=== PATIENT | female | born 1990 | race Caucasian/White ===

== ENCOUNTER 2020-04-27 14:09 | Emergency (ER) | payer BC, OTHER ==
--- NOTE | 2020-04-27 14:28 | TELE ---
HPI Do you have fever,cough or shortness of breath?: No - General Reason For Visit: COVID 19 TEST History Source: Patient Exam Limitations: No Limitations - History of Present Illness 04/27/20 14:26 30-year-old female denies past medical history evaluated via telemedicine requesting Covid testing. patient states recent exposure to a known positive Covid person. Denies cough, fever, chills, headache, body aches or any other symptom. PE: Speaking full sentences, does not appear in respiratory distress Past History - Medical History Allergies/Adverse Reactions: Allergies Allergy/AdvReac Type Severity Reaction Status Date / Time blueberry [Blueberry] Allergy Swelling Verified 07/08/14 09:11 No Known Drug Allergies Allergy Verified 07/08/14 09:11 Home Medications: Ambulatory Orders Oxycodone HCl/Acetaminophen [Percocet 5-325 mg Tablet -] 1 - 2 tab PO Q4H #20 tablet 07/09/14 Anemia: No Asthma: Yes Cancer: No Cardiac Disorders: No CVA: No COPD: No CHF: No Dementia: No Diabetes: No GI Disorders: No Disorders: No HTN: No Hypercholesterolemia: Yes Liver Disease: No Seizures: No Thyroid Disease: No - Surgical History Abdominal Surgery: Yes (GASTRIC SLEEVE 2011) Appendectomy: No Cardiac Surgery: No Cholecystectomy: No Lung Surgery: No Neurologic Surgery: No Orthopedic Surgery: No - Psycho-Social/Smoking History Smoking History: Never smoked Have you smoked in the past 12 months: No - Medical Decision Making 04/27/20 14:27 Covid test ordered Discharge Diagnosis at time of Disposition: Exposure to COVID-19 virus - Referrals Follow-up Referral(s): Neville Goldstein MD [Primary Care Provider] - - Patient Instructions Discharge Instructions: [facility] - Coronavirus Instructions Additional Discharge Instructions: You will be contacted within 2 to 3 days with Covid results - Discharge Disposition: HOME Condition at time of Disposition: Stable
== END 2020-04-27 14:28 | disposition home or self-care (01) ==
LOC: JVIRT 14:09
DX: Z03.818 Encounter for observation for suspected exposure to other biological agents ruled out (principal)
CPT/HCPCS: C9803; Q3014-GT; U0003

== ENCOUNTER 2020-05-07 14:16 | Emergency (ER) | payer BC, OTHER | END 2020-05-07 15:08 | disposition home or self-care (01) | LOC: JVIRT 14:16 | DX: Z03.818 Encounter for observation for suspected exposure to other biological agents ruled out (principal) | CPT/HCPCS: C9803; Q3014-GT; U0003 ==

== ENCOUNTER 2022-07-11 14:52 | Emergency (ER) | payer BC, OTHER ==
[2022-07-11 15:18] VITALS: BP 111/64; PULSE 84; RESP 18; TEMP 97.6; BMI 81.1
[2022-07-11] MEDS ORDERED: LACTATED RINGERS SOLUTION 1000 ML INFUS.BAG IV ONE (16:12)
[2022-07-11 16:53] LABS: BASO % 0.5 % (0-2.0); EOS % 2.8 % (0-4.5); HEMOGLOBIN 11.9 GM/dL (10.7-15.3); LYMPH % 14.1 % (8-40); MCH 23.8 pg (25.7-33.7); MCHC 32.3 g/dl (32.0-36.0); MEAN CELL VOLUME 73.7 fl (80-96); MEAN PLT VOLUME 8.5 fl (7.5-11.1); MONO % 4.3 % (3.8-10.2); NEUT % 78.3 % (42.8-82.8); PLATELET COUNT 298 10^3/uL (134-434); RBC 5.02 M/mm3 (3.60-5.2); RDW 16.6 % (11.6-15.6); WHITE BLOOD COUNT 13.5 K/mm3 (4.0-10.0)
[2022-07-11 17:12] LABS: CALCIUM 8.3 mg/dL (8.5-10.1)
[2022-07-11 17:13] LABS: ALBUMIN 3.5 g/dl (3.4-5.0); BLOOD UREA NITROGEN 5.2 mg/dL (7-18)
[2022-07-11 17:15] LABS: CREATININE 0.8 mg/dL (0.55-1.3)
[2022-07-11 17:17] LABS: BILIRUBIN,TOTAL 0.3 mg/dL (0.2-1); TOT PROT 6.7 g/dl (6.4-8.2)
[2022-07-11 18:56] LABS: PH,URINE 5.5 (5.0-8.0); URINE APPEARANCE CLEAR; URINE BILIRUBIN NEGATIVE (NEGATIVE); URINE COLOR YELLOW; URINE GLUCOSE (UA) NEGATIVE (NEGATIVE); URINE KETONE NEGATIVE (NEGATIVE); URINE LEUK ESTERASE NEGATIVE (NEGATIVE); URINE NITRITE NEGATIVE (NEGATIVE); URINE PROTEIN NEGATIVE (NEGATIVE); URINE UROBILINOGEN 0.2 mg/dL (0.2-1.0)
== END 2022-07-11 19:05 | disposition home or self-care (01) ==
LOC: JER 14:52
DX: R55 Syncope and collapse (principal)
CPT/HCPCS: 0241U-QW; 36415; 70450-TC; 71046-TC-FY; 80053; 81003; 84484; 84703; 85025; 93005; 93010; 99285-25